=== PATIENT | male | born 1975 | race Caucasian/White ===

== ENCOUNTER 2019-03-10 01:34 | Emergency (ER) | payer MEDICARE ==
[2019-03-10] MEDS ORDERED: LIDOCAINE 2% URO-JET 5 ML KIT MM ONE (02:06)
[2019-03-10 02:24] LABS: ABSOLUTE BASOPHILS # (AUTO) 0.2 10^3/uL (0.0-0.2); ABSOLUTE EOSINOPHILS # (AUTO) 0.4 10^3/uL (0.0-0.6); ABSOLUTE LYMPHOCYTES (AUTO) 2.5 10^3/uL (0.5-4.7); ABSOLUTE MONOCYTES (AUTO) 1.7 10^3/uL (0.1-1.4); ABSOLUTE NEUT (AUTO) 12.7 10^3/uL (1.7-8.2); BASOPHILS % (AUTO) 1.1 % (0-2); EOSINOPHILS % (AUTO) 2.2 % (0-6); HEMATOCRIT 43.1 % (37.9-51.0); HEMOGLOBIN 14.8 g/dL (13.5-17.0); LYMPHOCYTES % (AUTO) 14.5 % (13-45); MEAN CORPUSCULAR HEMOGLOBIN 27.8 pg (27.0-33.4); MEAN CORPUSCULAR HGB CONC 34.2 g/dL (32.0-36.0); MEAN CORPUSCULAR VOLUME 81 fl (80-97); MONOCYTES % (AUTO) 9.5 % (3-13); PLATELET COUNT 297 10^3/uL (150-450); RED BLOOD COUNT 5.31 10^6/uL (4.35-5.55); RED CELL DISTRIBUTION WIDTH 14.8 % (11.5-14.0); SEGMENTED NEUTROPHILS % (AUTO) 72.7 % (42-78); TOTAL CELLS COUNTED % (AUTO) 100 %; WHITE BLOOD COUNT 17.5 10^3/uL (4.0-10.5)
[2019-03-10 02:41] LABS: ALANINE AMINOTRANSFERASE 31 U/L (21-72); ALBUMIN 4.3 g/dL (3.5-5.0); ALKALINE PHOSPHATASE 123 U/L (38-126); ANION GAP 12 (5-19); ASPARTATE AMINO TRANSFERASE 15 U/L (17-59); BILIRUBIN,DIRECT 0.2 mg/dL (0.0-0.4); BILIRUBIN,TOTAL 0.6 mg/dL (0.2-1.3); BLOOD UREA NITROGEN 13 mg/dL (7-20); CALCIUM 9.9 mg/dL (8.4-10.2); CARBON DIOXIDE 24 mmol/L (22-30); CHLORIDE 105 mmol/L (98-107); GLUCOSE 163 mg/dL (75-110); POTASSIUM 4.1 mmol/L (3.6-5.0); SODIUM 141.4 mmol/L (137-145); TOTAL PROTEIN 7.7 g/dL (6.3-8.2)
[2019-03-10 03:41] VITALS: BP 151/86
[2019-03-10] MEDS ORDERED: RIVAROXABAN 15 MG TABLET PO ONE (03:59)
[2019-03-10] MEDS ORDERED: RIVAROXABAN 15 MG TABLET ONE (04:25)
--- NOTE | 2019-03-10 05:37 | ER Document Report ---
Entered by DARCY CUADRA SCRIBE 03/10/19 0332 Acting as scribe for:ESME GARCIA DO ED GI Bleed / Rectal Pain - General Chief Complaint: Rectal Pain Stated Complaint: LEG PAIN Time Seen by Provider: 03/10/19 01:51 Notes: Patient is a 43-year-old male presenting to the emergency department complaining of rectal bleeding and associated pain when wiping after having a bowel movement over the past 6 days. He states that he has a history of hyperactive bowel syndrome and has been having an increased amount of diarrhea over the past week. Denies abdominal pain, denies any fevers. He has been using triple antibiotic ointment and when this does not work he tried [id number] hemorrhoid cream which is also not working. Patient has not tried using Tucks wipes or Epsom salt baths because even water hurts. Additionally patient is concerned that he may have another DVT because he is having increasing pain and swelling in his right leg and he recently had a 28- hour round trip car ride. 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 Patient has been taking aspirin and attempt to decrease his risk. TRAVEL OUTSIDE OF THE [place] IN LAST 30 DAYS: No - Related Data Allergies/Adverse Reactions: lorazepam [From Ativan] Adverse Reaction (Intermediate, Verified 03/10/19 01:42) Psychosis Past Medical History - General Information source: Patient - Social History Smoking Status: Current Every Day Smoker Cigarette use (# per day): No Chew tobacco use (# tins/day): No Frequency of alcohol use: None Drug Abuse: Marijuana Lives with: Family Family History: Reviewed & Not Pertinent Patient has suicidal ideation: No Patient has homicidal ideation: No - Medical History Medical History: Negative - Past Medical History Cardiac Medical History: Reports: Hx DVT, Hx Pulmonary Embolism Pulmonary Medical History: Reports: None EENT Medical History: Reports: None Neurological Medical History: Reports: None Endocrine Medical History: Reports: None Renal/ Medical History: Reports: None Malignancy Medical History: Reports None GI Medical History: Reports: Other - hyperactive bowel syndrome Musculoskeletal Medical History: Reports None Skin Medical History: Reports None Psychiatric Medical History: Reports: None Traumatic Medical History: Reports: None Infectious Medical History: Reports: None Past Surgical History: Reports: None Review of Systems - Review of Systems Constitutional: No symptoms reported. denies: Fever EENT: No symptoms reported Cardiovascular: See HPI, Edema. denies: Chest pain, Orthopnea, Dyspnea Respiratory: No symptoms reported Gastrointestinal: See HPI, Diarrhea, Rectal bleeding. denies: Abdominal pain Genitourinary: No symptoms reported Male Genitourinary: No symptoms reported Musculoskeletal: No symptoms reported Skin: No symptoms reported Hematologic/Lymphatic: No symptoms reported Neurological/Psychological: No symptoms reported -: Yes All other systems reviewed and negative Physical Exam - Vital signs Vitals: Temp Pulse Resp BP Pulse Ox 98.3 F 91 17 151/86 H 96 03/10/19 03:31 03/10/19 03:31 03/10/19 03:31 03/10/19 03:03/10/19 03:31 Interpretation: Hypertensive - Notes Notes: PHYSICAL EXAM GENERAL: Alert, interacts well. No acute distress however he prefers to remain standing due to pain when sitting. HEAD: Normocephalic, atraumatic. EYES: Pupils equal, round, and reactive to light. Extraocular movements intact. ENT: Oral mucosa moist, tongue midline. NECK: Full range of motion. Supple. Trachea midline. LUNGS: Clear to auscultation bilaterally, no wheezes, rales, or rhonchi. No respiratory distress. HEART: Regular rate and rhythm. No murmurs, gallops, or rubs. ABDOMEN: Soft, non-tender. Non-distended. Bowel sounds present in all 4 quadrants. No guarding, rigidity, or rebound. EXTREMITIES: Moves all 4 extremities spontaneously. No edema, radial and dorsalis pedis pulses 2/4 bilaterally. No cyanosis. NEUROLOGICAL: Alert and oriented x3. Normal speech. PSYCH: Normal affect, normal mood. SKIN: Warm, dry, normal turgor. Increased varicosities to the right lower extremity - Rectal Hemorrhoids: None Notes: Superficial perirectal ulceration. Small amount of blood from ulceration. No surrounding erythema around ulceration. No internal digital rectal exam performed. Course - Re-evaluation Re-evalutation: 03/10/19 04:00 CBC shows leukocytosis 17.5, likely related to the increased diarrhea, abdomen is nontender, no evidence of abscess near his rectum, patient counseled to return for fevers, abdominal pain or any new or concerning symptoms. CMP shows elevated glucose at 163 otherwise unremarkable. Pain is relieved with lidocaine gel to the rectum. Patient will be restarted on Xarelto. Patient will be discharged home and given order to have Doppler ultrasound performed later today as Doppler is not on-call right now. Discharged home. No evidence of phlegmasia cerulea dolans. - Vital Signs Vital signs: Temp Pulse Resp BP Pulse Ox 98.3 F 91 17 151/86 H 96 03/10/19 03:31 03/10/19 03:31 03/10/19 03:31 03/10/19 03:31 03/10/19 03:31 - Laboratory Result Diagrams: 03/10/19 02:10 03/10/19 02:10 Laboratory results interpreted by me: 03/10/19 03/10/19 02:10 02:10 WBC 17.5 H RDW 14.8 H Absolute Neutrophils 12.7 H Absolute Monocytes 1.7 H Glucose 163 H AST 15 L Discharge - Discharge Clinical Impression: Right leg pain, Right leg swelling Skin ulcer of perirectal region Qualifiers: Non-pressure ulcer stage: limited to breakdown of skin Qualified Code(s): L98.491 - Non-pressure chronic ulcer of skin of other sites limited to breakdown of skin Condition: Stable Disposition: HOME, SELF-CARE Additional Instructions: Please call first thing in the morning to have your duplex ultrasound scheduled in order to check for a blood clot. I have prescribed you your Xarelto. Please take 15 mg twice a day for the next 21 days, after that you should be changed to 20 mg once a day. You will need to follow-up with a new primary care physician to have this new prescription written. I have prescribed you lidocaine cream to apply to your rectum daily to decrease your pain. You should also use diaper rash creams or barrier cream such as Laney's Butt paste, Aquaphor or Desitin to help relieve the ulceration. You may also use Imodium as directed on the box [id number] to decrease your diarrhea. If you develop a fever, abdominal pain or any new or concerning symptoms please return to the emergency department. Prescriptions: Lidocaine [Anecream5] 15 gm TP QIDP PRN #1 cream..g. PRN Reason: Rivaroxaban [Xarelto 15 mg Tablet] 15 mg PO BID #42 tablet Forms: Follow-Up Radiology Testing, Follow-Up Outpatient Testing I personally performed the services described in the documentation, reviewed and edited the documentation which was dictated to the scribe in my presence, and it accurately records my words and actions.
== END 2019-03-10 04:31 | disposition home or self-care (01) ==
LOC: ER 01:34
DX: K62.6 Ulcer of anus and rectum (principal); R19.7 Diarrhea, unspecified; M79.604 Pain in right leg; M79.89 Other specified soft tissue disorders; R73.9 Hyperglycemia, unspecified; F17.200 Nicotine dependence, unspecified, uncomplicated; D68.51 Activated protein C resistance; T45.516A Underdosing of anticoagulants, initial encounter; Z91.128 Patient's intentional underdosing of medication regimen for other reason; Z91.14 Patient's other noncompliance with medication regimen; Z79.82 Long term (current) use of aspirin; Z86.718 Personal history of other venous thrombosis and embolism; Z86.711 Personal history of pulmonary embolism; D72.829 Elevated white blood cell count, unspecified
CPT/HCPCS: 99283; 36415; 85025; 80053; A9270 ×2; J3490

== ENCOUNTER 2019-03-14 14:56 | Emergency (ER) | payer MEDICARE ==
[2019-03-14] MEDS ORDERED: NORMAL SALINE 1000 ML 1,000 ML IV ONE ×2 (15:26→16:43)
--- NOTE | 2019-03-14 15:36 | ER Document Report ---
ED Medical Screen (RME) - General Chief Complaint: Rectal Bleeding Stated Complaint: RECTAL BLEEDING Time Seen by Provider: 03/14/19 15:21 Mode of Arrival: Ambulatory Information source: Patient Notes: Patient patient is a 43-year-old male presenting with bilateral leg pain, numbness and rectal bleeding. Patient reports he was seen here 2 days ago for the same complaints. He states that he has a history of DVTs, states that he was unable to get a venous Doppler test on the other night so he was placed on anticoagulants. Patient reports he has not gotten these filled yet. Patient reports he is having increased rectal bleeding and passing clots. Patient reports that he feels kind of faint. Exam: Abdomen soft, nontender with no guarding no rebound. I have greeted and performed a rapid initial assessment of this patient. A comprehensive ED assessment and evaluation of the patient, analysis of test results and completion of the medical decision making process will be conducted by additional ED providers. Dictation of this chart was performed using voice recognition software; therefore, there may be some unintended grammatical errors. TRAVEL OUTSIDE OF THE [place] IN LAST 30 DAYS: No - Related Data Allergies/Adverse Reactions: lorazepam [From Ativan] Adverse Reaction (Intermediate, Verified 03/14/19 14:58) Psychosis Past Medical History - Social History Chew tobacco use (# tins/day): No Frequency of alcohol use: Occasional Drug Abuse: Marijuana - Past Medical History Cardiac Medical History: Reports: Hx DVT, Hx Heart Attack, Hx Pulmonary Embolism Renal/ Medical History: Denies: Hx Peritoneal Dialysis Past Surgical History: Reports: Hx Genitourinary Surgery - intestines Physical Exam - Vital signs Vitals: Temp Pulse Resp BP Pulse Ox 97.6 F 103 H 20 153/89 H 96 03/14/19 15:04 03/14/19 15:04 03/14/19 15:04 03/14/19 15:04 03/14/19 15:04 Course - Vital Signs Vital signs: Temp Pulse Resp BP Pulse Ox 97.6 F 103 H 20 153/89 H 96 03/14/19 15:04 03/14/19 15:04 03/14/19 15:04 03/14/19 15:04 03/14/19 15:04
[2019-03-14 16:05] LABS: ABSOLUTE BASOPHILS # (AUTO) 0.1 10^3/uL (0.0-0.2); ABSOLUTE EOSINOPHILS # (AUTO) 0.3 10^3/uL (0.0-0.6); ABSOLUTE LYMPHOCYTES (AUTO) 2.9 10^3/uL (0.5-4.7); ABSOLUTE MONOCYTES (AUTO) 1.4 10^3/uL (0.1-1.4); ABSOLUTE NEUT (AUTO) 12.4 10^3/uL (1.7-8.2); BASOPHILS % (AUTO) 0.7 % (0-2); EOSINOPHILS % (AUTO) 1.8 % (0-6); HEMATOCRIT 45.6 % (37.9-51.0); HEMOGLOBIN 15.6 g/dL (13.5-17.0); MEAN CORPUSCULAR HEMOGLOBIN 27.7 pg (27.0-33.4); MEAN CORPUSCULAR HGB CONC 34.1 g/dL (32.0-36.0); MEAN CORPUSCULAR VOLUME 81 fl (80-97); MONOCYTES % (AUTO) 8.1 % (3-13); PLATELET COUNT 305 10^3/uL (150-450); RED BLOOD COUNT 5.62 10^6/uL (4.35-5.55); RED CELL DISTRIBUTION WIDTH 14.8 % (11.5-14.0); SEGMENTED NEUTROPHILS % (AUTO) 72.4 % (42-78); TOTAL CELLS COUNTED % (AUTO) 100 %; WHITE BLOOD COUNT 17.1 10^3/uL (4.0-10.5)
[2019-03-14 16:15] LABS: APPEARANCE,URINE SLIGHTLY-CLOUDY; BILIRUBIN,URINE NEGATIVE (NEGATIVE); COLOR,URINE YELLOW; GLUCOSE, URINE NEGATIVE (NEGATIVE); KETONES,URINE 80 mg/dL (NEGATIVE); LEUKOCYTE ESTERASE,URINE NEGATIVE (NEGATIVE); NITRITE,URINE NEGATIVE (NEGATIVE); PROTEIN,URINE 100 mg/dL (NEGATIVE); URINE SPECIFIC GRAVITY 1.019; UROBILINOGEN,URINE NEGATIVE mg/dL (<2.0)
[2019-03-14 16:22] LABS: ALANINE AMINOTRANSFERASE 24 U/L (21-72); ALBUMIN 4.6 g/dL (3.5-5.0); ALKALINE PHOSPHATASE 115 U/L (38-126); ANION GAP 16 (5-19); ASPARTATE AMINO TRANSFERASE 19 U/L (17-59); BILIRUBIN,DIRECT 0.4 mg/dL (0.0-0.4); BLOOD UREA NITROGEN 12 mg/dL (7-20); CALCIUM 10.1 mg/dL (8.4-10.2); CARBON DIOXIDE 21 mmol/L (22-30); CHLORIDE 103 mmol/L (98-107); GLUCOSE 121 mg/dL (75-110); POTASSIUM 4.2 mmol/L (3.6-5.0); SODIUM 139.9 mmol/L (137-145); TOTAL PROTEIN 8.4 g/dL (6.3-8.2)
[2019-03-14 16:48] LABS: PROTHROMBIN TIME 13.7 SEC (11.4-15.4)
[2019-03-14 16:49] LABS: PARTIAL THROMBOPLASTIN TIME 32.8 SEC (23.5-35.8)
--- NOTE | 2019-03-14 16:51 | ER Document Report ---
Addendum entered and electronically signed by KRISTY BUTLER PA-C 03/14/19 22:39: Course - Re-evaluation Re-evalutation: 03/14/19 22:38 He accepted patient from [facility] Ortega at shift change. Transport is set to arrive in the next 10 minutes. I assessed patient at the bedside and he was complaining of pain. I did give him Dilaudid 0.5 mg IV 1 time prior to him leaving. His vital signs are currently within normal limits and have been stable throughout his course. He is stable for transport. - Vital Signs Vital signs: Temp Pulse Resp BP Pulse Ox 97.6 F 103 H 14 183/96 H 98 03/14/19 15:04 03/14/19 15:04 03/14/19 21:01 03/14/19 21:01 03/14/19 21:01 - Laboratory Result Diagrams: 03/14/19 15:39 03/14/19 15:39 Laboratory results interpreted by me: 03/14/19 03/14/19 03/14/19 15:39 15:39 15:39 WBC 17.1 H RBC 5.62 H RDW 14.8 H Absolute Neutrophils 12.4 H Carbon Dioxide 21 L Glucose 121 H Hemoglobin A1c % Total Protein 8.4 H Urine Protein 100 H Urine Ketones 80 H Urine Blood SMALL H 03/14/19 15:39 WBC RBC RDW Absolute Neutrophils Carbon Dioxide Glucose Hemoglobin A1c % 6.8 H Total Protein Urine Protein Urine Ketones Urine Blood Original Note: ED General - General Chief Complaint: Rectal Bleeding Stated Complaint: RECTAL BLEEDING Time Seen by Provider: 03/14/19 15:21 Mode of Arrival: Ambulatory Information source: Patient Notes: Patient presents complaining of tenderness from a skin tear to his rectum. Patient states that he has a history of hyper bowel disorder in which she gets frequent episodes of diarrhea. Patient states that he is getting over a flareup of his diarrhea symptoms. Patient states that he was doing a lot of excessive wiping and the area became raw. Patient denies any recent trauma or rectal in tercourse although does have a history of rectal intercourse in the past. Patient also reports having leg numbness to bilateral lower extremities is been off and on for the past 3 weeks. Patient has had pain to the extremities as well. Patient states that presently he does not have any pain or numbness to the left leg but does have numbness to the right leg with pain to the right ankle and foot. Patient also states that he has noticed some visual disturbances in that he will see an image and it will flash in the periphery of his vision and then resolved. He states that he knows that there is no image actually there. Patient denies any headache pain. Patient states that he will have these visual episodes about 5 times a day over the past several days. Patient denies any auditory hallucinations. Patient was here in the ER several days ago for these complaints and was supposed to have a venous duplex study performed but they were not available. Patient was given an outpatient slip but did not have the test performed. Patient does have a history of factor V Leiden with over 12 DVTs as well as PE in the past and had a clot within the abdomen that caused him to have to have a bowel resection. Patient was supposed to be on Xarelto but has been off this medication for the past 2 years. Patient does not currently have insurance and has had difficulty in getting his prescriptions filled. Patient was given a prescription for Xarelto during his last ER visit but he did not get it filled. TRAVEL OUTSIDE OF THE [place] IN LAST 30 DAYS: No - HPI Onset: Other - Rectal pain over the past several days, leg pain and numbness off and on over 3 weeks Quality of pain: Achy - Leg pain, Sharp - Rectal pain Associated symptoms: Diarrhea. denies: Chest pain, Nonproductive cough, Productive cough, Fever, Nausea, Vomiting, Shortness of breath Exacerbated by: Other - Bowel movements Relieved by: Denies Similar symptoms previously: No Recently seen / treated by doctor: No - Related Data Allergies/Adverse Reactions: lorazepam [From Ativan] Adverse Reaction (Intermediate, Verified 03/14/19 14:58) Psychosis Past Medical History - General Information source: Patient - Social History Smoking Status: Current Every Day Smoker Chew tobacco use (# tins/day): No Frequency of alcohol use: Occasional Drug Abuse: Marijuana Occupation: None Family History: Reviewed & Not Pertinent Patient has suicidal ideation: No Patient has homicidal ideation: No - Medical History Medical History: Other - Factor V Leiden - Past Medical History Cardiac Medical History: Reports: Hx DVT, Hx Heart Attack, Hx Pulmonary Embolism Renal/ Medical History: Denies: Hx Peritoneal Dialysis Past Surgical History: Reports: Hx Bowel Surgery, Hx Orthopedic Surgery, Hx Vascular Surgery - Dunlap filter Review of Systems - Review of Systems Constitutional: No symptoms reported. denies: Fever EENT: Other - Patient will see flashing images in the periphery of his vision about 5 episodes a day for the past 3 days. denies: Eye pain, Eye discharge, Blurred vision, Double vision Cardiovascular: No symptoms reported. denies: Chest pain, Palpitations, Dizziness Respiratory: No symptoms reported. denies: Cough, Short of breath Gastrointestinal: Other - Rectal tenderness. denies: Abdominal pain, Nausea, Black stools Genitourinary: No symptoms reported Male Genitourinary: No symptoms reported Musculoskeletal: Other - Leg pain and numbness. denies: Back pain, Leg swelling Skin: No symptoms reported Hematologic/Lymphatic: No symptoms reported Neurological/Psychological: No symptoms reported. denies: Confusion, Weakness, Headaches Physical Exam - Vital signs Vitals: Temp Pulse Resp BP Pulse Ox 97.6 F 103 H 20 153/89 H 96 03/14/19 15:04 03/14/19 15:04 03/14/19 15:04 03/14/19 15:04 03/14/19 15:04 - General General appearance: Appears well, Alert In distress: None - HEENT Head: Normocephalic, Atraumatic Eyes: Normal Conjunctiva: Normal Extraocular movements intact: Yes Eyelashes: Normal Pupils: PERRL Nerve palsy: No Ears: Normal Mouth/Lips: Caries Mucous membranes: Normal Neck: Normal, Supple. No: Lymphadenopathy, Meningismus - Respiratory Respiratory status: No respiratory distress Chest status: Nontender Breath sounds: Normal. No: Rales, Rhonchi, Stridor, Wheezing Chest palpation: Normal - Cardiovascular Rhythm: Regular Heart sounds: S1 appreciated, S2 appreciated Pulses: Normal: Dorsalis pedis Normal capillary refill: Yes - Abdominal Inspection: Normal Distension: No distension Bowel sounds: Normal Tenderness: Nontender - Rectal Tenderness: Yes Hemorrhoids: Other - Patient with shallow ulceration to anus with visible cream- colored discharge. Patient exquisitely tender and unable to tolerate digital rectal examination - Back Back: Tender - Lower lumbar paraspinal tenderness. No: Deformity/step-off, CVA tenderness - Extremities General upper extremity: Normal inspection, Normal ROM General lower extremity: Normal inspection, Normal ROM - Neurological Neuro grossly intact: Yes Cognition: Normal [place] Coma Scale Eye Opening: Spontaneous [place] Coma Scale Verbal: Oriented Eric Coma Scale Motor: Obeys Commands [place] Coma Scale Total: 15 Sensory: Altered light touch - Altered light touch sensation to the right foot and ankle - Psychological Associated symptoms: Normal affect, Normal mood - Skin Skin Temperature: Warm Skin Moisture: Dry Skin Color: Dusky - Dusky, ready discoloration to the proximal phalanx of the right second toe Course - Re-evaluation Re-evalutation: 03/14/19 16:[address] Brewer regarding patient presentation and diagnostic evaluation. Recommends adding on hemoglobin A1c as well as CT imaging for [facility] er evaluation of possible perirectal abscess. Does recommend getting bilateral Doppler test as previously planned. 03/14/19 18:54 Doppler electronic test technician reports that patient has a preliminary positive DVT to left mid thigh area. Dr. Brewer updated regarding this finding. Does recommend starting Xarelto or other anticoagulant at this time. 03/14/19 19:02 Pt does have joshua filter in, will hold anticoagulant until pt's ct scan has been resulted pending any acute surgical problem. RN updated. 03/14/19 20:10 Radiologist called with pertinent findings on the CT scan. 03/14/19 20:[address] Brewer regarding patient's verbalized CT report. Will await for formal report and then surgery for consultation. 03/14/19 20:[address] Mary regarding patient presentation and CT report findings. Recommends consultation and transfer to facility with vascular surgery such as [facility]. 03/14/19 21:[address] Mueller vascular surgery at [facility] who agrees to accept patient for transfer. Recommends initiating heparin drip at this time. SOLEDAD Phelps given report and handoff. 03/14/19 21:18 Please bill 30 minutes critical care time spent in direct contact evaluating, reevaluating patient, treating symptoms, reviewing labs, studies and speaking with family and consultants, excluding any procedures. - Vital Signs Vital signs: Temp Pulse Resp BP Pulse Ox 97.6 F 103 H 14 183/96 H 98 03/14/19 15:04 03/14/19 15:04 03/14/19 21:01 03/14/19 21:01 03/14/19 21:01 - Laboratory Result Diagrams: 03/14/19 15:39 03/14/19 15:39 Laboratory results interpreted by me: 03/14/19 03/14/19 03/14/19 15:39 15:39 15:39 WBC 17.1 H RBC 5.62 H RDW 14.8 H Absolute Neutrophils 12.4 H Carbon Dioxide 21 L Glucose 121 H Hemoglobin A1c % Total Protein 8.4 H Urine Protein 100 H Urine Ketones 80 H Urine Blood SMALL H 03/14/19 15:39 WBC RBC RDW Absolute Neutrophils Carbon Dioxide Glucose Hemoglobin A1c % 6.8 H Total Protein Urine Protein Urine Ketones Urine Blood 03/14/19 21:10 Labs- Entire Visit 03/14/19 03/14/19 03/14/19 15:39 15:39 15:39 WBC 17.1 H RBC 5.62 H Hgb 15.6 Hct 45.6 MCV 81 MCH 27.7 MCHC 34.1 RDW 14.8 H Plt Count 305 Seg Neutrophils % 72.4 Lymphocytes % 17.0 Monocytes % 8.1 Eosinophils % 1.8 Basophils % 0.7 Absolute Neutrophils 12.4 H Absolute Lymphocytes 2.9 Absolute Monocytes 1.4 Absolute Eosinophils 0.3 Absolute Basophils 0.1 PT INR APTT Sodium 139.9 Potassium 4.2 Chloride 103 Carbon Dioxide 21 L Anion Gap 16 BUN 12 Creatinine 0.83 Est GFR ( Amer) > 60 Est GFR (Non-Af Amer) > 60 Glucose 121 H Hemoglobin A1c % Calcium 10.1 Total Bilirubin 1.0 Direct Bilirubin 0.4 Neonat Total Bilirubin Not Reportable Neonat Direct Bilirubin Not Reportable Neonat Indirect Bili Not Reportable AST 19 ALT 24 Alkaline Phosphatase 115 Total Protein 8.4 H Albumin 4.6 Urine Color Urine Appearance Urine pH Ur Specific [place] Urine Protein Urine Glucose (UA) Urine Ketones Urine Blood Urine Nitrite Urine Bilirubin Urine Urobilinogen Ur Leukocyte Esterase Urine WBC (Auto) Urine RBC (Auto) Urine Mucus (Auto) Urine Ascorbic Acid HIV 1&2 Antibody Blood Type B POSITIVE Antibody Screen NEGATIVE 03/14/19 03/14/19 03/14/19 15:39 15:39 15:39 WBC RBC Hgb Hct MCV MCH MCHC RDW Plt Count Seg Neutrophils % Lymphocytes % Monocytes % Eosinophils % Basophils % Absolute Neutrophils Absolute Lymphocytes Absolute Monocytes Absolute Eosinophils Absolute Basophils PT 13.7 INR 1.00 APTT 32.8 Sodium Potassium Chloride Carbon Dioxide Anion Gap BUN Creatinine Est GFR ( Amer) Est GFR (Non-Af Amer) Glucose Hemoglobin A1c % 6.8 H Calcium Total Bilirubin Direct Bilirubin Neonat Total Bilirubin Neonat Direct Bilirubin Neonat Indirect Bili AST ALT Alkaline Phosphatase Total Protein Albumin Urine Color YELLOW Urine Appearance SLIGHTLY-CLOUDY Urine pH 5.0 Ur Specific [place] 1.019 Urine Protein 100 H Urine Glucose (UA) NEGATIVE Urine Ketones 80 H Urine Blood SMALL H Urine Nitrite NEGATIVE Urine Bilirubin NEGATIVE Urine Urobilinogen NEGATIVE Ur Leukocyte Esterase NEGATIVE Urine WBC (Auto) 4 Urine RBC (Auto) 1 Urine Mucus (Auto) MOD Urine Ascorbic Acid NEGATIVE HIV 1&2 Antibody Blood Type Antibody Screen 03/14/19 15:39 WBC RBC Hgb Hct MCV MCH MCHC RDW Plt Count Seg Neutrophils % Lymphocytes % Monocytes % Eosinophils % Basophils % Absolute Neutrophils Absolute Lymphocytes Absolute Monocytes Absolute Eosinophils Absolute Basophils PT INR APTT Sodium Potassium Chloride Carbon Dioxide Anion Gap BUN Creatinine Est GFR ( Amer) Est GFR (Non-Af Amer) Glucose Hemoglobin A1c % Calcium Total Bilirubin Direct Bilirubin Neonat Total Bilirubin Neonat Direct Bilirubin Neonat Indirect Bili AST ALT Alkaline Phosphatase Total Protein Albumin Urine Color Urine Appearance Urine pH Ur Specific [place] Urine Protein Urine Glucose (UA) Urine Ketones Urine Blood Urine Nitrite Urine Bilirubin Urine Urobilinogen Ur Leukocyte Esterase Urine WBC (Auto) Urine RBC (Auto) Urine Mucus (Auto) Urine Ascorbic Acid HIV 1&2 Antibody NEGATIVE Blood Type Antibody Screen - Diagnostic Test Radiology reviewed: Reports reviewed Discharge - Discharge Clinical Impression: Right leg pain, Aortic thrombus Skin ulcer of perirectal region Qualifiers: Non-pressure ulcer stage: limited to breakdown of skin Qualified Code(s): L98.491 - Non-pressure chronic ulcer of skin of other sites limited to breakdown of skin Deep vein thrombosis (DVT) of left lower extremity Qualifiers: Affected thrombotic vein of extremity: unspecified vein of extremity Chronicity: unspecified Qualified Code(s): I82.402 - Acute embolism and thrombosis of unspecified deep veins of left lower extremity Condition: Fair Disposition: [facility]
[2019-03-14] MEDS ORDERED: RIVAROXABAN 15 MG TABLET PO ONE (18:44)
--- NOTE | 2019-03-14 18:54 | RADIOLOGY REPORT (SQ) ---
EXAM DESCRIPTION: VENOUS BILATERAL LOWER COMPLETED DATE/TIME: 03/14/2019 6:40 pm REASON FOR STUDY: leg pain/numbness, hx DVT COMPARISON: None. TECHNIQUE: Dynamic and static barrett scale and color images acquired of both lower extremity venous sy stems. Selected spectral images acquired with additional compression and augmentation maneuvers. Imag es stored on PACS. LIMITATIONS: None. FINDINGS: RIGHT LEG COMMON FEMORAL AND FEMORAL: Normal phasicity, compression and augmentation. No visualized echogenic m aterial on barrett scale. No defects on color images. POPLITEAL: Normal compression and augmentation. No visualized echogenic material on barrett scale. No de fects on color images. CALF VESSELS: Normal compression and augmentation. No visualized echogenic material on barrett scale. No defects on color image. GSV AND SSV: Normal compression. No visualized echogenic material on barrett scale. No defects on color images. ANY DEEP VENOUS INSUFFICIENCY: Not evaluated. ANY EVIDENCE OF POPLITEAL CYST: No. OTHER: No other significant finding. LEFT LEG COMMON FEMORAL AND FEMORAL: There is limited thrombus in the mid superficial femoral vein.c POPLITEAL: Normal compression and augmentation. No visualized echogenic material on barrett scale. No de fects on color images. CALF VESSELS: Normal compression and augmentation. No visualized echogenic material on barrett scale. No defects on color images. GSV AND SSV: Normal compression. No visualized echogenic material on barrett scale. No defects on color images. ANY DEEP VENOUS INSUFFICIENCY: Not evaluated. ANY EVIDENCE POPLITEAL CYST: No. OTHER: No other significant finding. IMPRESSION: There is DVT in the mid superficial femoral vein on the left. TECHNICAL DOCUMENTATION: JOB ID: [id number] [employer]- All Rights Reserved Reading location - IP/workstation name: [email or web address]
--- NOTE | 2019-03-14 20:01 | RADIOLOGY REPORT (SQ) ---
EXAM DESCRIPTION: CT HEAD WITHOUT COMPLETED DATE/TIME: 03/14/2019 7:50 pm REASON FOR STUDY: visual disturbance COMPARISON: None. TECHNIQUE: Axial images acquired through the brain without intravenous contrast. Images reviewed wi th bone, brain and subdural windows. Additional sagittal and coronal reconstructions were generated. Images stored on PACS. All CT scanners at this facility use dose modulation, iterative reconstruction, and/or weight based d osing when appropriate to reduce radiation dose to as low as reasonably achievable (ALARA). [facility]: Dose Right [facility]: CareDose [facility]: Dose Right [facility]: Teradose 4D [facility]: FohBoh RADIATION DOSE: CT Rad equipment meets quality standard of care and radiation dose reduction techniq ues were employed. CTDIvol: 53.2 mGy. DLP: 1070 mGy-cm. mGy. LIMITATIONS: None. FINDINGS: VENTRICLES: Normal size and contour. CEREBRUM: No masses. No hemorrhage. No midline shift. No evidence for acute infarction. Normal gra y/white matter differentiation. No areas of low density in the white matter. CEREBELLUM: No masses. No hemorrhage. No alteration of density. No evidence for acute infarction. EXTRAAXIAL SPACES: No fluid collections. No masses. ORBITS AND GLOBE: No intra- or extraconal masses. Normal contour of globe without masses. CALVARIUM: No fracture. PARANASAL SINUSES: No fluid or mucosal thickening. SOFT TISSUES: No mass or hematoma. OTHER: No other significant finding. IMPRESSION: NORMAL BRAIN CT WITHOUT CONTRAST. EVIDENCE OF ACUTE STROKE: NO. COMMENT: Quality ID # [id number]: Final reports with documentation of one or more dose reduction techniques (e.g., Automated exposure control, adjustment of the mA and/or kV according to patient size, use of iterative reconstruction technique) TECHNICAL DOCUMENTATION: JOB ID: [id number] [email or web address]- All Rights Reserved Reading location - IP/workstation name: [email or web address]
[2019-03-14] MEDS ORDERED: FENTANYL CITRATE INJ/PF 100 MCG/2 ML AMPUL IV ONE (20:13)
--- NOTE | 2019-03-14 20:13 | RADIOLOGY REPORT (SQ) ---
EXAM DESCRIPTION: CT ABD/PELVIS WITH IV ORAL COMPLETED DATE/TIME: 03/14/2019 7:50 pm REASON FOR STUDY: rectal pain, drainage, ?abscess COMPARISON: None. TECHNIQUE: CT scan of the abdomen and pelvis performed using helical scanning technique with dynamic intravenous contrast injection. Oral contrast. Images reviewed with lung, soft tissue, and bone win dows. Reconstructed coronal and sagittal MPR images reviewed. Delayed images for evaluation of the ur inary system also acquired. All images stored on PACS. All CT scanners at this facility use dose modulation, iterative reconstruction, and/or weight based d osing when appropriate to reduce radiation dose to as low as reasonably achievable (ALARA). [facility]: Dose Right [facility]: CareDose [facility]: Dose Right [facility]: Teradose 4D [facility]: [employer]vance CONTRAST TYPE AND DOSE: contrast/concentration: Isovue 350.00 mg/ml; Total Contrast Delivered: 100.0 ml; Total Saline Delivered: 72.0 ml RENAL FUNCTION: BUN 12 creatinine 0.83 RADIATION DOSE: CT Rad equipment meets quality standard of care and radiation dose reduction techniq ues were employed. CTDIvol: 14.6 - 18.3 mGy. DLP: 1771 mGy-cm.. LIMITATIONS: None. FINDINGS: LOWER CHEST: No significant findings. No nodules or infiltrates. LIVER: Normal size. No masses. No dilated ducts. SPLEEN: Normal size. No focal lesions. PANCREAS: No masses. No significant calcifications. No adjacent inflammation or peripancreatic fluid collections. Pancreatic duct not dilated. GALLBLADDER: No identified stones by CT criteria. No inflammatory changes to suggest cholecystitis. ADRENAL GLANDS: No significant masses or asymmetry. RIGHT KIDNEY AND URETER: No solid masses. No significant calcifications. No hydronephrosis or hyd roureter. LEFT KIDNEY AND URETER: No solid masses. No significant calcifications. No hydronephrosis or hydr oureter. AORTA AND VESSELS: No contrast is in the aorta distal to the renal artery origins. There is no contr ast in the iliac arteries. The femoral arteries are opacified. RETROPERITONEUM: No retroperitoneal adenopathy, hemorrhage or masses. BOWEL AND PERITONEAL CAVITY: No masses or inflammatory changes. No free fluid or peritoneal masses. APPENDIX: Normal. PELVIS: No mass. No free fluid. Normal bladder. ABDOMINAL WALL: No masses. No hernias. BONES: No significant or acute findings. OTHER: No other significant finding. IMPRESSION: The aorta distal to the renal artery origins and the iliac arteries appear to be thrombo sed. The femoral arteries fill by way of collaterals. No other significant finding in the abdomen o r pelvis. COMMENT: Pertinent findings on the imaging study reported as a CRITICAL RESULT to AXEL BENTLEY NP at20:05 on 03/14/2019. Category of Critical Result: Aortoiliac thrombosis. TECHNICAL DOCUMENTATION: JOB ID: [id number] Quality ID # [id number]: Final reports with documentation of one or more dose reduction techniques (e.g., Au tomated exposure control, adjustment of the mA and/or kV according to patient size, use of iterative reconstruction technique) 2010 [employer]- All Rights Reserved Reading location - IP/workstation name: [email or web address]
[2019-03-14] MEDS ORDERED: VALACYCLOVIR HCL 500 MG TABLET PO ONE (20:33)
[2019-03-14] MEDS ORDERED: HEPARIN SODIUM,PORCINE/D5W 25,000 UNIT/250 ML RTUINJ IV PRN (21:06)
[2019-03-14] MEDS ORDERED: HEPARIN SOD (PORCINE) 1,000 UNIT/ML 10 ML VIAL IV ONE (21:06)
[2019-03-14] MEDS ORDERED: HYDROMORPHONE HCL INJ/PF 2 MG/ML AMPULE IV ONE (22:38)
[2019-03-14 22:59] VITALS: BP 188/89
[2019-03-15] MEDS ORDERED: HEPARIN SOD (PORCINE) 1,000 UNIT/ML 10 ML VIAL IV PRN (00:07)
== END 2019-03-14 23:05 | disposition short-term general hospital (02) ==
LOC: ER 14:56
DX: I74.10 Embolism and thrombosis of unspecified parts of aorta (principal); L98.491 Non-pressure chronic ulcer of skin of other sites limited to breakdown of skin; I82.402 Acute embolism and thrombosis of unspecified deep veins of left lower extremity; K62.5 Hemorrhage of anus and rectum; R19.7 Diarrhea, unspecified; R20.0 Anesthesia of skin; M79.604 Pain in right leg; F17.200 Nicotine dependence, unspecified, uncomplicated
CPT/HCPCS: 86900; 86901; 36415; 86850; 85025; 85610; 85730; 80053; 81001; 87250; 86701; 83036; 93970; 70450; 74177; J1644 ×2; J3010; J1170; J7030; A9270